=== PATIENT | female | born 1990 | race Caucasian/White ===

== ENCOUNTER 2017-05-15 20:57 | Outpatient (CLI) | payer MEDICARE, MEDICAID ==
[~2017-05-15] VITALS: Ht 154.9 cm; Wt 74.8 kg
[~2017-05-15 20:57] MED LIST: CLINDAMYCIN HC150 MG PO; FLINTSTONES W/I1 CTB OR; GABAPENTIN100 MG PO; IBUPROFEN PO; MACROBID100 M3 PO; MIRAPEX 0.120.125 MG PO; MOTRIN600 M1 PO; MULTI-VITAMIN1 EAC2 PO; NAPROSYN 375MG375 MG PO; NAPROSYN500 M1 PO; NOMEDS; PERCOCET 5/3251 EACH PO; PREDNISONE 20MG20 MG PO; ROPINIROLE HYDRO2 MG PO; SEPTRA DS 800 M1 TAB PO; SERTRALINE 50MG50 MG PO; SERTRALINE25 MG PO; TRAZODONE50 MG PO; ZITHROMAX Z PA250 MG PO; ZOLOFT100 MG PO; ZOLPIDEM 10MG T10 MG PO
[2017-05-15 21:23] VITALS: BP 136/89
== END 2017-05-15 21:40 | disposition home or self-care (01) ==
LOC: OBOUT 20:57 → OB 20:58 → OBOUT 21:40
DX: O36.8130 Decreased fetal movements, third trimester, not applicable or unspecified (principal); Z3A.31 31 weeks gestation of pregnancy

== ENCOUNTER 2017-06-08 19:54 | Outpatient (CLI) | payer MEDICARE, MEDICAID ==
[~2017-06-08] VITALS: Ht 152.4 cm; Wt 79.0 kg
[2017-06-08 20:41] VITALS: BP 141/96
[2017-06-08 20:50] LABS: URINE BILIRUBIN - DIPSTICK NEGATIVE (NEG); URINE BLOOD TRACE-LYSED (NEG)
[2017-06-09] MEDS ORDERED: TUMS 400MG TAB400 MG PO (12:12)
== END 2017-06-08 21:30 | disposition home or self-care (01) ==
LOC: OBOUT 19:54 → OB 19:55 → OBOUT 21:30
PROVIDERS: Nurse Practitioner Obstetrics & Gynecology
DX: O26.93 Pregnancy related conditions, unspecified, third trimester (principal); Z3A.35 35 weeks gestation of pregnancy; R42 Dizziness and giddiness; R82.90 Unspecified abnormal findings in urine

== ENCOUNTER 2017-06-09 11:44 | Outpatient (CLI) | payer MEDICARE, MEDICAID ==
[~2017-06-09] VITALS: Ht 154.9 cm; Wt 77.3 kg
[2017-06-09] VITALS (11 sets, daily range): BP systolic 114–140; BP diastolic 71–90
[2017-06-09] MEDS ORDERED: TUMS 400MG TAB400 MG PO (12:12)
[2017-06-09 12:41] LABS: URINE BILIRUBIN - DIPSTICK NEGATIVE (NEG); URINE BLOOD NEGATIVE (NEG)
[2017-06-09 13:39] LABS: LYMPH # 2.2 K/mm3 (0.7-4.5); LYMPH % 17.3 % (10-50.0)
[2017-06-09 13:45] LABS: HEMOGLOBIN 11.1 g/dL (12.2-16.2)
== END 2017-06-09 15:08 | disposition home or self-care (01) ==
LOC: OB 11:44 → OBOUT 11:44
PROVIDERS: Nurse Practitioner Obstetrics & Gynecology
DX: O26.93 Pregnancy related conditions, unspecified, third trimester (principal); Z3A.35 35 weeks gestation of pregnancy; R11.2 Nausea with vomiting, unspecified; R51 Headache; O16.3 Unspecified maternal hypertension, third trimester; R42 Dizziness and giddiness
CPT/HCPCS: J2405

== ENCOUNTER → 2017-06-11 | Outpatient (CLI) | payer MEDICARE, MEDICAID ==
[~2017-06-11] MED LIST changes: +TUMS 400MG TAB400 MG PO
== END ==
LOC: LAB 16:47
DX: Z34.80 Encounter for supervision of other normal pregnancy, unspecified trimester (principal)

== ENCOUNTER 2017-07-07 02:51 | Inpatient (IN) | payer MEDICARE, MEDICAID ==
[~2017-07-07] VITALS: Ht 154.9 cm; Wt 80.3 kg
--- OUTSIDE RECORDS SUMMARY | 2017-07-07 02:55 | External Medical Summary Rpt | CCD ---
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 Role Phone Isiah Adams MD, Unavailable Unavailable Isiah Adams MD Purpose Continuity of Care Document - 08-11-2012 through 2016 Problems Code Diagnosis DOS Provider Status 642.31 642.31 07-03-2013 [facility] LIVERED 653.41 653.41 07-03-2013 [facility] ELIV V27.0 V27.0 07-03-2013 [facility] LIVEBORN E03.9 HYPOTHYROID ISM, UNSPECIFIED G56.00 CARPAL TUNNEL SYNDROME, UNSPECIFIED UPPER LIMB J18.9 PNEUMONIA, UNSPECIFIED ORGANISM O20.9 HEMORRHAGE IN EARLY , UNSPECIFIED R00.0 TACHYCARDIA , UNSPECIFIED R07.9 CHEST PAIN, UNSPECIFIED R10.9 UNSPECIFIED ABDOMINAL PAIN R82.71 BACTERIURIA S40.029A CONTUSION OF UNSPECIFIED UPPER ARM, INITIAL ENCOUNTER S46.919A STRAIN UNSP MUSC/FASC/T END AT SHLDR/UP ARM, UNSP ARM, INIT S93.409A SPRAIN OF UNSP LIGAMENT OF UNSPECIFIED ANKLE, INIT ENCNTR Allergies, Adverse Reactions, Alerts Type Propensity to adverse reactions to drug Adverse Reaction to Substance Substance Reaction Severity Amoxicillin Unknown Unknown Clavulanic Acid NA-NAUSEA Unknown Medications Na ND Rx Da Fi Fi Am Da Di Ph RX Ph St me C No te ll ll ou ys ag ar # ys at rm s nt no ma ic us Or Da si cy ia de te s n re d AC 00 11 1 No ET 12 -0 AM 10 9- Lo IN 65 20 ng OP 71 13 er HE 1 N Ac 32 ti 5 ve MG /1 0. 15 ML SE 67 11 1 No NO 61 -0 KO 80 9- Lo T 30 20 ng 8. 01 13 er 6 1 MG Ac ti TA ve BL ET DO 00 11 1 No CU 12 -0 SA 10 9- Lo TE 54 20 ng 41 13 er SO 0 DI Ac UM ti ve 50 MG /5 ML LI Q IB 68 11 1 No UP 09 -0 RO 40 9- Lo FE 50 20 ng N 36 13 er 20 2 0 Ac MG ti /1 ve 0 ML CRANDALL SP KE 00 11 1 No TO 09 -0 RO 30 8- Lo LA 31 20 ng C 40 13 er 10 1 Ac MG ti ve TA BL ET CE 60 11 0 No FA 50 -0 ZO 50 7- Lo LI 74 20 ng N 90 13 er 1 5 GM Ac ti ve AL SO 00 11 0 No DI 40 -0 UM 97 7- Lo 98 20 ng CH 43 13 er LO 7 RI Ac DE ti ve 0. 9% SO KENDALL TI ON LA [address] 40 -0 AT 97 7- Lo ED 95 20 ng 30 13 er RI 9 NG Ac ER ti S ve IN JE CT IO N MA 00 11 0 No GN 40 -0 ES 96 7- Lo IU 72 20 ng M 90 13 er CRANDALL 3 LF Ac ti 20 ve G/ 50 0 ML BA G PI 11 11 0 No TO 11 -0 CI 11 7- Lo N 11 20 ng 30 13 13 er 3 UN Ac IT ti S/ ve LR 50 0M L IV AM 00 11 0 No PI 78 -0 CI 13 7- Lo LL 41 20 ng IN 39 13 er 2 2 Ac GM ti ve A- V AL BU 55 11 0 No TO 39 -0 RP 00 7- Lo BURNS 18 20 ng NO 30 13 er L 1 1 Ac MG ti /M ve L AL MA 00 11 2 No PA 90 -0 P 41 7- Lo 32 98 20 ng 5 26 13 er MG 1 Ac TA ti BL ve ET IN 49 11 3 No FL 28 -0 UE 10 7- Lo NZ 39 20 ng A 21 13 er 5 RU Ac S ti VA ve CC IN E 0. 5M L Mo 00 11 3 No rp 40 -0 hi 91 7- Lo ne 25 20 ng 83 13 er 4M 0 G/ Ac Ml ti ve Sy ri ng e OX 00 11 3 No YC 40 -0 OD 60 7- Lo ON 55 20 ng E 26 13 er HC 2 L Ac 5 ti MG ve TA BL ET SI 63 11 3 No ME 73 -0 TH 90 7- Lo IC 22 20 ng ON 51 13 er E 0 80 Ac ti MG ve TA B CH EW MA 59 11 0 No SO 76 -0 ME 25 7- Lo OS 00 20 ng TO 80 13 er L 1 20 Ac 0 ti MC ve G TA BL ET KE 00 11 1 No TO 40 -0 RO 93 7- Lo LA 79 20 ng C 50 13 er 30 1 Ac MG ti /M ve L AL Results Labs Lab Lab Date Result Refere Interp Status Commen Order Detail nces retati t Range on CBC w auto diff (06-09-2017 13:20) Blood = 11.1 12.2-16 complet hemoglo 017 g/dL .2 ed bin 13:20 measure ment (mass/v olum Blood = 33.2 37.0-47 complet hematoc 017 % .0 ed rit 13:20 (volume fractio n) Granulo = 72.5 37.0-80 complet cyte 017 % .0 ed percent 13:20 age Blood = 9.2 1.8-7.8 complet granulo 017 K/mm3 ed cytes 13:20 automat ed count (numb Automat = 5.6 % 0.1-12. complet ed 017 0 ed blood 13:20 eosinop hils/10 0 leukocy t Automat = 0.7 0.0-0.4 complet ed 017 K/mm3 ed blood 13:20 eosinop hil count Baso % = 0.3 % 0.1-2.0 complet 017 ed 13:20 Automat = 0.0 0-0.2 complet ed 017 K/MM3 ed blood 13:20 basophi l count (count/ vo Blood = 12.7 4.8-10. complet leukocy 017 K/MM3 8 ed albretina 13:20 count (number /volume ) Automat = 13.2 11.5-17 complet ed 017 % .5 ed erythro 13:20 cyte distrib ution width Red = 4.02 4.2-5.4 complet blood 017 M/mm3 ed cell 13:20 count Blood = 285 142-424 complet platele 017 K/mm3 ed t count 13:20 Automat = 8.3 7.4-10. complet ed 017 fl 4 ed blood 13:20 platele t mean volume jaqueline [place] % = 4.4 % 1.7-9.3 complet 017 ed 13:20 Absolut = 0.6 0.1-1.0 complet e 017 K/mm3 ed monocyt 13:20 e count Automat = 82.5 82.2-97 complet ed 017 fl .8 ed erythro 13:20 cyte mean corpusc ular v Automat = 33.3 31.8-35 complet ed 017 g/dl .4 ed erythro 13:20 cyte mean corpusc ular h Mean = 27.5 27-31.2 complet corpusc 017 pg ed ular 13:20 hemoglo bin ([facility]) determ Lymphoc = 17.3 10-50.0 complet yte 017 % ed count, 13:20 blood, automat ed Absolut = 2.2 0.7-4.5 complet e 017 K/mm3 ed lymphoc 13:20 yte count Blood type and screen (06-09-2017 13:20) Blood TNP TNP complet ABO 017 L ed group 13:20 typing Comment: TNP PER Rh TNP TNP complet blood 017 L ed group 13:20 typing Materna TNP TNP NEGATIV complet l 017 L E ed antibod 13:20 y screen Activated partial thromboplastin time (a (06-09-2017 13:20) Activat = 26.0 23.6-34 complet ed 017 SECONDS .0 ed partial 13:20 thrombo plastin time (a Whole blood INR measurement (06-09-2017 13:20) Prothro = 10.1 9.4-11. complet mbin 017 SECONDS 8 ed time 13:20 (PT) in platele t poor p Whole = 0.94 0.9-1.1 complet blood 017 ed INR 13:20 measure ment Comment: INDICATION INR RANGE Comment: Comment: THERAPY FOR DVT, PE, ATRIAL FIB; 2.0 - 3.0 Comment: PROPHYLAXIS FOR VTE Comment: Comment: THERAPY FOR MECHANICAL HEART 2.5 - 3.5 Comment: VALVE; PREVENTION OF SYSTEMIC Comment: EMBOLISM SECONDARY TO AMI Fibrinogen measurement in platelet poor (06-09-2017 13:20) Fibrino = 467.0 204.2-4 complet gen 017 mg/dL 99.8 ed measure 13:20 ment in platele t poor D-dimer (06-09-2017 13:20) D-dimer = 575 0-400 complet 017 ng/mL ed 13:20 Comment: NOTIFICATION RESULT Comment: Diane Comment: The D-Dimer values are presented in units of mass(ng/mL) of Comment: D-Dimer units(DDU). Comment: Comment: This test has been FDA approved as an aid in the assessment Comment: and evaluation of suspected DIC, and thromboembolic events Comment: including PE and DVT. However, it does not have approval Comment: for cut-off values for the exclusion of these conditions. Serum or plasma uric acid measurement (m (06-09-2017 13:20) Serum = 3.9 2.6-7.2 complet or 017 mg/dL ed plasma 13:20 uric acid measure ment (m ALT (SGPT) ser/plas (06-09-2017 13:20) ALT = 21 12-78 complet (SGPT) 017 U/L ed ser/lynn 13:20 s Serum or plasma aspartate aminotransfera (06-09-2017 13:20) Serum = 19 15-37 complet or 017 U/L ed plasma 13:20 asparta te aminotr ansfera Basic metabolic panel (06-09-2017 13:20) Serum = 138 136-145 complet sodium 017 mmoL/L ed measure 13:20 ment Serum = 3.6 3.5-5.1 complet potassi 017 mmoL/L ed um 13:20 measure ment Serum = 104 74-106 complet or 017 mg/dL ed plasma 13:20 glucose measure ment (mas Estimat = 122 59- complet ed 017 ML/MIN ed glomeru 13:20 lar filtrat ion rate (GF Comment: REFERENCE RANGE: >60 ML/MIN/1.73 SQUARE METERS Comment: If this patient is -Panamanian, then multiply the Comment: result by 1.210. Estimat = 175 50-200 complet ion of 017 ML/MIN ed creatin 13:20 ine renal clearan ce Serum = 0.6 0.55-1. complet or 017 mg/dL 02 ed plasma 13:20 creatin ine measure ment ( Carbon = 23 21.0-32 complet dioxide 017 mmoL/L .0 ed 13:20 measure ment Serum = 106 98-107 complet or 017 mmoL/L ed plasma 13:20 chlorid e measure ment (mo Serum = 8.1 8.5-10. complet or 017 mg/dL 1 ed plasma 13:20 calcium measure ment (mas Serum = 6 7-18 complet or 017 mg/dL ed plasma 13:20 urea nitroge n measure men Blood type & Indirect antibody screen panel in Blood (06-09-2017 13:20) Blood TNP NEGATIV complet group 017 E ed antibod 13:20 y screen [Presen ce] in Serum or Plasma Rh TNP complet [Type] 017 ed in 13:20 Blood ABO 06-09- TNP complet group 017 ed [Type] 13:20 in Blood Urinalysis with microscopy (06-09-2017 11:59) Comment: Collected by nurse? Y Comment: Hold specimen in OE? N Bacteri TRACE O complet a 017 TRACE L ed detecti 11:59 on in urine sedimen t by Urine NEGATIV NEG complet total 017 E ed bilirub 11:59 NEGATIV in E L detecti on by test Urine NEGATIV NEG complet blood 017 E ed detecti 11:59 NEGATIV on E L Urine YELLOW YELLOW complet color 017 YELLOW ed 11:59 L Glucose 1 + NEG complet ur 017 ed test 11:59 strip Urine NEGATIV NEG complet ketones 017 E ed 11:59 NEGATIV detecti E L on by mg/dL automat ed albertina Mucus 1+ 1+ L NEG complet detecti 017 ed on in 11:59 urine sedimen t by lig Urine NEGATIV NEG complet nitrite 017 E ed 11:59 NEGATIV detecti E L on by test strip Urine = 6.5 5.0-8.5 complet pH 017 ed 11:59 Urine = NEG complet protein 017 NEGATIV ed 11:59 E mg/dL measure ment by automat ed t Erythro NONE 0 complet cytes 017 NONE L ed detecti 11:59 rbc/hpf on in urine sedimen t Urine < = 1.005-1 complet specifi 017 1.005 .030 ed c 11:59 gravity measure ment [place] 3-5 3-5 0-5 complet s 017 L ed epithel 11:59 #/hpf ial cells detecti on in u Urine 0.2 0.2 NEG complet urobili 017 L ed nogen 11:59 E.U./dL detecti on by test str Urine 3 - 5 O complet leukocy 017 wbc/hpf ed albertina 11:59 count (number /volume ) Urine CLEAR CLEAR complet appeara 017 CLEAR L ed nce 11:59 determi nation Urinalysis with microscopy (06-08-2017 20:00) Comment: Collected by nurse? Y Comment: Hold specimen in OE? N Urine 10 - 20 O complet leukocy 017 ed albertina 20:00 wbc/hpf count (number /volume ) Urine 0.2 0.2 NEG complet urobili 017 L ed nogen 20:00 E.U./dL detecti on by test str [place] 5-10 0-5 complet s 017 5-10 L ed epithel 20:00 #/hpf ial cells detecti on in u Urine = 1.010 1.005-1 complet specifi 017 .030 ed c 20:00 gravity measure ment Urine = NEG complet protein 017 NEGATIV ed 20:00 E mg/dL measure ment by automat ed t Urine 16-2 = 7.0 5.0-8.5 complet pH 017 ed 20:00 Urine 10-16-2 NEGATIV NEG complet nitrite 017 E ed 20:00 NEGATIV detecti E L on by test strip Mucus -16-2 2+ 2+ L NEG complet detecti 017 ed on in 20:00 urine sedimen t by lig Urine 16-2 NEGATIV NEG complet ketones 017 E ed 20:00 NEGATIV detecti E L on by mg/dL automat ed albertina Glucose 16-2 = NEG complet ur 017 NEGATIV ed test 20:00 E strip Urine 06-08-2 YELLOW YELLOW complet color 017 YELLOW ed 20:00 L Urine -16-2 TRACE-L NEG complet blood 017 YSED ed detecti 20:00 TRACE-L on YSED L Urine 06-08-2 NEGATIV NEG complet total 017 E ed bilirub 20:00 NEGATIV in E L detecti on by test Bacteri 06-08-2 1+ 1+ L O complet a 017 ed detecti 20:00 on in urine sedimen t by Urine 06-08-2 CLEAR CLEAR complet appeara 017 CLEAR L ed nce 20:00 determi nation Urinalysis dipstick W Reflex Microscopic panel in Urine (06-08-2017 20:00) Bacteri -16-2 1+ O complet a 017 ed [Presen 20:00 ce] in Urine sedimen t by Light microsc opy Epithel 06-08- 5-10 0#/hp complet ial 017 f - ed cells.s 20:00 5#/hp quamous f [Presen ce] in Urine sedimen t by Microsc opy high power field Leukocy -16-2 10-20 O complet albertina 017 wbc/hpf ed [#/volu 20:00 me] in Urine Urinalysis dipstick W Reflex Microscopic panel in Urine (06-08-2017 20:00) Appeara 10-16-2 CLEAR CLEAR complet nce of 017 ed Urine 20:00 Bilirub 16-2 NEGATIV NEG complet in 017 E ed [Presen 20:00 ce] in Urine by Test strip Erythro 16-2 TRACE-L NEG complet cytes 017 YSED ed [Presen 20:00 ce] in Urine Color 06-08-2 YELLOW YELLOW complet of 017 ed Urine 20:00 Ketones 06-08-2 NEGATIV NEG complet 017 E ed [Presen 20:00 ce] in Urine by Automat ed test strip Mucus 06-08-2 2+ NEG Abnorma complet [Presen 017 l ed ce] in 20:00 Urine sedimen t by Light microsc opy Nitrite NEGATIV NEG complet 017 E ed [Presen 20:00 ce] in Urine by Test strip Urobili 2 0.2 NEG complet nogen 017 ed [Presen 20:00 ce] in Urine by Test strip Urinalysis dipstick W Reflex Microscopic panel in Urine (04-16-2017 16:00) Bacteri 3+ O complet a 017 ed [Presen 16:00 ce] in Urine sedimen t by Light microsc opy Erythro 2 OCC 0 complet cytes 017 ed [Presen 16:00 ce] in Urine sedimen t by Light microsc opy Epithel 20-50 0#/hp complet ial 017 f - ed cells.s 16:00 5#/hp quamous f [Presen ce] in Urine sedimen t by Microsc opy high power field Leukocy 10-20 O complet albertina 017 wbc/hpf ed [#/volu 16:00 me] in Urine Urinalysis dipstick W Reflex Microscopic panel in Urine (04-16-2017 16:00) Appeara CLOUDY CLEAR complet nce of 017 ed Urine 16:00 Bilirub 2 NEGATIV NEG complet in 017 E ed [Presen 16:00 ce] in Urine by Test strip Erythro NEGATIV NEG complet cytes 017 E ed [Presen 16:00 ce] in Urine Color YELLOW YELLOW complet of 017 ed Urine 16:00 Ketones 04-16-2 NEGATIV NEG complet 017 E ed [Presen 16:00 ce] in Urine by Automat ed test strip Mucus 3+ NEG Abnorma complet [Presen 017 l ed ce] in 16:00 Urine sedimen t by Light microsc opy Nitrite NEGATIV NEG complet 017 E ed [Presen 16:00 ce] in Urine by Test strip Urobili 04-16-2 0.2 NEG complet nogen 017 ed [Presen 16:00 ce] in Urine by Test strip pH BldCo (06-30-2013 12:05) pH 06-30-2 7.34 7.35-7. complet BldCo 013 UNK 45 ed 12:05 URINALYSIS/COMPLETE (06-30-2013 09:51) URINE 06-30-2 YELLOW YELLOW complet COLOR 013 ed 09:51 URINE 06-30-2 CLEAR CLEAR complet APPEARA 013 ed NCE 09:51 URINE 06-30-2 NEGATIV NEG complet GLUCOSE 013 E ed - 09:51 DIPSTIC K URINE 06-30-2 NEGATIV NEG complet BILIRUB 013 E ed IN - 09:51 DIPSTIC K URINE 06-30-2 NEGATIV NEG complet KETONE 013 E mg/dL ed 09:51 URINE 06-30-2 Greater 1.005-1 complet SPECIFI 013 than .030 ed C 09:51 or GRAVITY equal to 1.030 URINE 06-30-2 1+ NEG complet BLOOD 013 ed 09:51 URINE 06-30-2 6.0 UNK 5.0-8.5 complet PH 013 ed 09:51 URINE 06-30-2 NEGATIV NEG complet PROTEIN 013 E mg/dL ed - 09:51 DIPSTIC K URINE 06-30-2 0.2 NEG complet UROBILI 013 E.U./dL ed NOGEN - 09:51 DIPSTIC K URINE 06-30-2 NEGATIV NEG complet NITRATE 013 E ed - 09:51 DIPSTIC K URINE 06-30-2 NEGATIV NEG complet LEUK 013 E ed ESTERAS 09:51 E URINE 06-30-2 3-5 0 complet RBC 013 rbc/hpf ed 09:51 URINE 06-30-2 5-10 0-5 complet SQUAMOU 013 #/hpf ed S CELLS 09:51 URINE 06-30-2 1+ O complet BACTERI 013 ed A 09:51 BASIC METABOLIC PANEL (06-30-2013 02:30) Glucose --2 80 74-106 complet 013 mg/dL ed Bld-mCn 02:30 c BUN 11-07-2 5 mg/dL 7-18 complet Bld-mCn 013 ed c 02:30 Creat 0.8 0.6-1.0 complet SerPl-m 013 mg/dL ed Cnc 02:30 ESTIMAT 132 50-200 complet ED 013 ML/MIN ed CREATIN 02:30 INE CLEARAN CE GFR 91 59- complet (ESTIMA 013 ML/MIN ed CHAITANYA) 02:30 Sodium 141 136-145 complet SerPl-s 013 mmoL/L ed Cnc 02:30 Potassi 3.3 3.5-5.1 complet um 013 mmoL/L ed SerPl-s 02:30 Cnc Chlorid 107 98-107 complet e 013 mmoL/L ed SerPl-s 02:30 Cnc CO2 23 21.0-32 complet SerPl-s 013 mmoL/L .0 ed Cnc 02:30 Calcium 8.7 8.5-10. complet 013 mg/dL 1 ed SerPl-m 02:30 Cnc URIC ACID (06-30-2013 02:30) URIC 5.8 2.6-7.2 complet ACID 013 mg/dL ed 02:30 Magnesium SerPl-mCnc (06-30-2013 02:30) Magnesi 1.7 1.4-2.2 complet um 013 mg/dL ed SerPl-m 02:30 Cnc AST SerPl-cCnc (06-30-2013 02:30) AST 20 U/L 15-37 complet SerPl-c 013 ed Cnc 02:30 ALT SerPl-cCnc (06-30-2013 02:30) ALT 34 U/L 30-65 complet SerPl-c 013 ed Cnc 02:30 PROTIME/INR (06-30-2013 02:30) PROTHRO 9.4 9.9-11. complet MBIN 013 SECONDS 6 ed TIME 02:30 INR Bld 0.88 0.9-1.1 complet 013 UNK ed 02:30 ACT PARTIAL THROMBO TIME (06-30-2013 02:30) ACT 24.0 25.3-32 complet PARTIAL 013 SECONDS .0 ed 02:30 THROMBO TIME Fibrinogen PPP-nc (06-30-2013 02:30) Fibrino 484.5 204.1-4 complet gen 013 mg/dL 58.1 ed PPP-mCn 02:30 c D Dimer PPP (06-30-2013 02:30) D Dimer 1520 0-400 High complet PPP 013 ng/mL alert ed 02:30 CBC with AUTO DIFF (06-30-2013 02:30) WBC # 06-30- 12.1 4.8-10. complet Bld 013 K/MM3 8 ed Auto 02:30 RBC # 4.00 4.2-5.4 complet Bld 013 M/mm3 ed Auto 02:30 Hgb 11.1 12.2-16 complet Bld-mCn 013 g/dL .2 ed c 02:30 Hct Fr 32.4 % 37.0-47 complet Bld 013 .0 ed 02:30 MCV RBC 81.2 fl 82.2-97 complet 013 .8 ed 02:30 MCH RBC 27.8 pg 27-31.2 complet Qn 013 ed Auto 02:30 MEAN 34.3 31.8-35 complet CORPUSC 013 g/dl .4 ed ULAR 02:30 HGB CONC RDW RBC 14.6 % 11.5-17 complet Auto 013 .5 ed 02:30 Platele 294 142-424 complet t Bld 013 K/mm3 ed Ql 02:30 Manual MEAN 8.4 fl 7.4-10. complet PLATELE 013 4 ed T 02:30 VOLUME Granulo 65.5 % 37.0-80 complet cytes 013 .0 ed Fr Bld 02:30 Auto LYMPH % 24.3 % 10-50.0 complet 013 ed 02:30 Monocyt 5.4 % 1.7-9.3 complet es Fr 013 ed Bld 02:30 Auto Eosinop 4.6 % 0.1-12. complet hil Fr 013 0 ed Bld 02:30 Auto Basophi 11-07-2 0.3 % 0.1-2.0 complet ls Fr 013 ed Bld 02:30 Auto Granulo 7.9 1.8-7.8 complet cytes # 013 K/mm3 ed Bld 02:30 Auto Lymphoc 2.9 0.7-4.5 complet ytes Fr 013 K/mm3 ed Bld 02:30 Auto Monocyt 06-30-2 0.7 0.1-1.0 complet es # 013 K/mm3 ed Bld 02:30 Auto Eosinop 0.6 0.0-0.4 complet hil # 013 K/mm3 ed Bld 02:30 Auto Basophi 2 0.0 0-0.2 complet ls # 013 K/MM3 ed Bld 02:30 Auto URINALYSIS/COMPLETE (06-30-2013 00:48) URINE YELLOW YELLOW complet COLOR 013 ed 00:48 URINE CLEAR CLEAR complet APPEARA 013 ed NCE 00:48 URINE NEGATIV NEG complet GLUCOSE 013 E ed - 00:48 DIPSTIC K URINE NEGATIV NEG complet BILIRUB 013 E ed IN - 00:48 DIPSTIC K URINE NEGATIV NEG complet KETONE 013 E mg/dL ed 00:48 URINE 1.010 1.005-1 complet SPECIFI 013 UNK .030 ed C 00:48 GRAVITY URINE NEGATIV NEG complet BLOOD 013 E ed 00:48 URINE 6.0 UNK 5.0-8.5 complet PH 013 ed 00:48 URINE NEGATIV NEG complet PROTEIN 013 E mg/dL ed - 00:48 DIPSTIC K URINE 0.2 NEG complet UROBILI 013 E.U./dL ed NOGEN - 00:48 DIPSTIC K URINE NEGATIV NEG complet NITRATE 013 E ed - 00:48 DIPSTIC K URINE 1+ NEG complet LEUK 013 ed ESTERAS 00:48 E URINE OCC 0 complet RBC 013 rbc/hpf ed 00:48 URINE 10-20 O complet WBC 013 wbc/hpf ed 00:48 URINE 10-20 0-5 complet SQUAMOU 013 #/hpf ed S CELLS 00:48 URINE OCC NONE complet RENAL 013 #/HPF ed CELLS 00:48 URINE 2+ O complet BACTERI 013 ed A 00:48 Procedures Procedure DOS Code Location Performer Comment LOW 74.1 [facility] Bryan LOPEZ Encounters Encounter Start End Date Code Location Performer Type Date Inpatient IMP Aris Adams MD ([place]) 3 00:39 3 14:30 [facility]
--- OUTSIDE RECORDS SUMMARY | 2017-07-07 02:55 | External Medical Summary Rpt | CCD ---
Author Author , JESUSITA Organization JESUSITA Address Unknown Phone [email or web address] Care Team Providers Care Writer Producer Name Role Phone Isiah Adams MD, Unavailable Unavailable Isiah Adams MD Purpose Continuity of Care Document - 08-11-2012 through 2016 Problems Code Diagnosis DOS Provider Status 642.31 642.31 07-03-2013 [facility] LIVERED 653.41 653.41 07-03-2013 [facility] ELIV V27.0 V27.0 07-03-2013 [facility] LIVEBORN E03.9 HYPOTHYROID ISM, UNSPECIFIED G56.00 CARPAL [...] ti MG ve TA B CH EW KS 59 11 0 No SO 76 -0 MS 25 7- Lo OS 00 20 ng [...] 4.8-10. complet leukocy 017 K/MM3 8 ed albertina 13:20 count (number /volume ) Automat = 13.2 11.5-17 complet ed 017 % .5 ed erythro 13:20 cyte distrib ution width Red = 4.02 4.2-5.4 complet blood 017 M/mm3 ed cell 13:20 count Blood = 285 142-424 complet platele 017 K/mm3 ed t count 13:20 Automat = 8.3 7.4-10. complet ed 017 fl 4 ed blood 13:20 platele t mean volume jaqueline [place] % = 4.4 % 1.7-9.3 complet 017 [...] SQUARE METERS Comment: If this patient is -Moroccan, then multiply the Comment: result by 1.210. [...] DOS Code Location Performer Comment LOW 74.1 [facility] Bryan LOPEZ Encounters Encounter Start End Date Code Location Performer Type Date Inpatient IMP Aris Adams MD ([place]) 3 00:39 3 14:30 [facility]
--- OUTSIDE RECORDS SUMMARY | 2017-07-07 02:56 | External Medical Summary Rpt | CCD ---
Author Author , JESUSITA MC Address Unknown Phone [email or web address] Immunization Name Date Rout CVX Reac Dose Comm Prov Is Faci e tion ent ider Refu lity Give sed n Td 08-0 9 999 Hist H149 No H149 (yimi 4-20 oric lt), 04 al Info adso rmat rbed ion - Sour ce Unsp ecif ied
--- OUTSIDE RECORDS SUMMARY | 2017-07-07 02:56 | External Medical Summary Rpt | CCD ---
Author Author Con[employer]ent Organization Conduent Address Unknown Phone Unavailable Purpose Continuity of Care Document - through 2016
--- OUTSIDE RECORDS SUMMARY | 2017-07-07 02:56 | External Medical Summary Rpt | CCD ---
Author Author , JESUSITA MC Address Unknown Phone [email or web address] Immunization Name Date Rout CVX Reac Dose Comm Prov Is Faci e tion ent ider Refu lity Give sed n Td 08-0 9 999 Hist H149 No H149 (ymii 4-20 oric lt), 04 al Info adso rmat rbed ion - Sour ce Unsp ecif ied
--- OUTSIDE RECORDS SUMMARY | 2017-07-07 02:57 | External Medical Summary Rpt ---
Author Author JESUSITA Farias, [employer] Organization [employer] Address Unknown Phone Unavailable Results Fibrin D-dimer FEU [Mass/volume] in Platelet poor plasma Observa Value Referen Units Interpr Notes Date tion ce etation Range Fibrin 0 - 400 ng/mL High Jun 09 D-dimer alert NOTIFICAT 2017 1:20 FEU ION PM [Mass/vol RESULT ume] in Marguerite Platelet neThe poor D-Dimer plasma values are presented in units of mass(ng/m L) ofD-Dimer units(DDU ).This test has been FDA approved as an aid in the assessmen tand evaluatio n of suspected DIC, and thromboem bolic eventsinc luding PE and DVT. However, it does not have approvalf or cut-off values for the exclusion of these condition s. Fibrinogen [Mass/volume] in Platelet poor plasma by Coagulation assay Observa Value Referen Units Interpr Notes Date tion ce etation Range Fibrinoge 204.2 - mg/dL Normal No Jun 09 n 499.8 informati 2017 1:20 [Mass/vol on in PM ume] in source Platelet data poor plasma by Coagulati on assay INR in Blood by Coagulation assay Observa Value Referen Units Interpr Notes Date ti ce etation Range INR in 0.9 - 1.1 No Normal INDICATIO Jun 09 Blood by informati N 2017 1:20 Coagulati on in PM on assay source INR data RANGETHER APY FOR DVT, PE, ATRIAL FIB; 2.0 - 3.0PROPHY LAXIS FOR VTETHERAP Y FOR MECHANICA L HEART 2.5 - 3.5VALVE; PREVENTIO N OF SYSTEMICE MBOLISM SECONDARY TO AMI Prothromb 9.4 - SECONDS Normal No Jun 09 in time 11.8 informati 2017 1:20 (PT) in on in PM Platelet source poor data plasma by Coagulati on assay Activated partial thrombplastin time (aPTT) in Platelet poor plasma by Coagulation assay Observa Value Referen Units Interpr Notes Date tion ce etation Range Activated 23.6 - SECONDS Normal No Jun 09 partial 34.0 informati 2016 1:20 thrombpla on in PM stin time source (aPTT) data in Platelet poor plasma by Coagulati on assay Basic metabolic panel in Blood Observa Value Referen Units Interpr Notes Date tion ce etation Range Urea 7 - 18 mg/dL Low No Jun 09 nitrogen informati 2016 1:20 [Mass/vol on in PM ume] in source Serum or data Plasma Calcium 8.5 - mg/dL Low No Jun 09 [Mass/vol 10.1 informati 2016 1:20 ume] in on in PM Serum or source Plasma data Chloride 98 - 107 mmoL/L Normal No Jun 09 [Moles/vo informati 2016 1:20 lume] in on in PM Serum or source Plasma data Carbon 21.0 - mmoL/L Normal No Jun 09 dioxide, 32.0 informati 2016 1:20 total on in PM [Moles/vo source lume] in data Serum or Plasma Creatinin 0.55 - mg/dL Normal No Jun 09 e 1.02 informati 2016 1:20 [Mass/vol on in PM ume] in source Serum or data Plasma Creatinin 50 - 200 ML/MIN Normal No Jun 09 e renal informati 2016 1:20 clearance on in PM source predicted data by Cockcroft -Gault formula Estimated 59- ML/MIN No REFERENCE Jun 09 informati RANGE: 2017 1:20 glomerula on in >60 PM r source ML/MIN/1. filtratio data 73 SQUARE n rate METERSIf (GF this patient is -A merican, then multiply theresult by 1.210. Glucose 74 - 106 mg/dL Normal No Jun 09 [Mass/vol informati 2016 1:20 ume] in on in PM Serum or source Plasma data Potassium 3.5 - 5.1 mmoL/L Normal No Jun 09 informati 2016 1:20 [Moles/vo on in PM lume] in source Serum or data Plasma Sodium 136 - 145 mmoL/L Normal No Jun 09 [Moles/vo informati 2016 1:20 lume] in on in PM Serum or source Plasma data Aspartate aminotransferase [Enzymatic activity/volume] in Serum or Plasma Observa Value Referen Units Interpr Notes Date tion ce etation Range Aspartate 15 - 37 U/L Normal No Jun 09 inform2016 1:20 aminotran on in PM sferase source [Enzymati data c activity/ volume] in Serum or Plasma Alanine aminotransferase [Enzymatic activity/volume] in Serum or Plasma Observa Value Referen Units Interpr Notes Date tion ce etation Range Alanine 12 - 78 U/L Normal No Jun 09 aminotran inform2016 1:20 sferase on in PM [Enzymati source c data activity/ volume] in Serum or Plasma Urate [Mass/volume] in Serum or Plasma Observa Value Referen Units Interpr Notes Date tion ce etation Range Urate 2.6 - 7.2 mg/dL Normal No Jun 09 [Mass/vol informati 2016 1:20 ume] in on in PM Serum or source Plasma data CBC W Auto Differential panel in Blood Observa Value Referen Units Interpr Notes Date ti ce etation Range Basophils 0 - 0.2 K/MM3 Normal No Jun 092016 1:20 [#/volume on in PM ] in source Blood by data Automated count Basophils 0.1 - 2.0 % Normal No Jun 09 / informati 2016 1:20 leukocyte on in PM s in source Blood by data Automated count Eosinophi 0.0 - 0.4 K/mm3 High No Jun 09 ls informati 2016 1:20 [#/volume on in PM ] in source Blood by data Automated count Eosinophi 0.1 - % Normal No Jun 09 ls/100 12.0 informati 2016 1:20 leukocyte on in PM s in source Blood by data Automated count Granulocy 1.8 - 7.8 K/mm3 High No Jun 09 angely informati 2016 1:20 [#/volume on in PM ] in source Blood by data Automated count Granulocy 37.0 - % Normal No Jun 09 angely/100 80.0 informati 2016 1:20 leukocyte on in PM s in source Blood by data Automated count Hematocri 37.0 - % Low No Jun 09 t [Volume 47.0 informati 2016 1:20 on in PM Fraction] source of Blood data Hemoglobi 12.2 - g/dL Low No Jun 09 n 16.2 informati 2016 1:20 [Mass/vol on in PM ume] in source Blood data Lymphocyt 0.7 - 4.5 K/mm3 Normal No Jun 09 es ati 2016 1:20 [#/volume on in PM ] in source Unspecifi data ed specimen by Automated count Lymphocyt 10 - 50.0 % Normal No Jun 09 es inform2016 1:20 [#/volume on in PM ] in source Unspecifi data ed specimen by Automated count Erythrocy 27 - 31.2 pg Normal No Jun 09 te mean inform2016 1:20 corpuscul on in PM ar source hemoglobi data n [Entitic mass] Erythrocy 31.8 - g/dl Normal No Jun 09 te mean 35.4 informati 2016 1:20 corpuscul on in PM ar source hemoglobi data n concentra tion [Mass/vol ume] by Automated count Erythrocy 82.2 - fl Normal No Jun 09 te mean 97.8 informati 2016 1:20 corpuscul on in PM ar volume source [Entitic data volume] by Automated count Monocytes 0.1 - 1.0 K/mm3 Normal No Jun 09 inform2016 1:20 [#/volume on in PM ] in source Blood by data Automated count Monocytes 1.7 - 9.3 % Normal No Jun 09 /100 informati 2016 1:20 leukocyte on in PM s in source Blood by data Automated count Platelet 7.4 - fl Normal No Jun 09 mean 10.4 informati 2016 1:20 volume on in PM [Entitic source volume] data in Blood by Automated count Platelets 142 - 424 K/mm3 Normal No Jun 09 inform2016 1:20 [#/volume on in PM ] in source Blood data Erythrocy 4.2 - 5.4 M/mm3 Low No Jun 09 angely informati 2016 1:20 [#/volume on in PM ] in source Amniotic data fluid Erythrocy 11.5 - % Normal No Jun 09 te 17.5 informati 2016 1:20 distribut on in PM ion width source [Entitic data volume] by Automated count Leukocyte 4.8 - K/MM3 High No Jun 09 s 10.8 informati 2016 1:20 [#/volume on in PM ] in source Blood data Blood type & Indirect antibody screen panel in Blood Observa Value Referen Units Interpr Notes Date tion ce etation Range Blood TNP NEGATIV No No No Jun 09 group E informa informa informa 2016 antibod tion in tion in tion in 1:20 PM y source source source screen data data data [Presen ce] in Serum or Plasma Rh TNP No No No No Jun 09 [Type] informa informa informa informa 2017 in tion in tion in tion in tion in 1:20 PM Blood source source source source data data data data ABO TNP No No No TNP PER Jun 09 group informa informa informa 2016 [Type] tion in tion in tion in DRGosiaCLAR 1:20 PM in source source source KE Blood data data data Urinalysis dipstick W Reflex Microscopic panel in Urine Observa Value Referen Units Interpr Notes Date tion ce etation Range Collected by nurse? Y Hold specimen in OE? N Appeara CLEAR CLEAR No No No Jun 08 nce of informa informa informa 2016 Urine tion in tion in tion in 8:00 PM source source source data data data Bacteri 1+ O No No No Jun 08 a informa informa informa 2016 [Presen tion in tion in tion in 8:00 PM ce] in source source source Urine data data data sedimen t by Light microsc opy Bilirub NEGATIV NEG No No No Jun 08 in E informa informa informa 2016 [Presen tion in tion in tion in 8:00 PM ce] in source source source Urine data data data by Test strip Erythro TRACE-L NEG No No No Jun 08 cytes YSED informa informa informa 2016 [Presen tion in tion in tion in 8:00 PM ce] in source source source Urine data data data Color YELLOW YELLOW No No No Jun 08 of informa informa informa 2016 Urine tion in tion in tion in 8:00 PM source source source data data data Glucose NEG No No No Jun 08 [Mass/vol informati informati informati 2016 8:00 ume] in on in on in on in PM Urine by source source source Test data data data strip Ketones NEGATIV NEG mg/dL No No Jun 08 E informa informa 2016 [Presen tion in tion in 8:00 PM ce] in source source Urine data data by Automat ed test strip Mucus 2+ NEG No Abnorma No Jun 08 [Presen informa l informa 2016 ce] in tion in tion in 8:00 PM Urine source source sedimen data data t by Light microsc opy Nitrite NEGATIV NEG No No No Jun 08 E informa informa informa 2016 [Presen tion in tion in tion in 8:00 PM ce] in source source source Urine data data data by Test strip pH of 5.0 - 8.5 No Normal No Jun 08 Urine informati informati 2016 8:00 on in on in PM source source data data Protein NEG mg/dL No No Jun 08 [Mass/vol informati informati 2016 8:00 ume] in on in on in PM Urine by source source Automated data data test strip Specific 1.005 - No Normal No Jun 08 gravity 1.030 informati informati 2016 8:00 of Urine on in on in PM source source data data Epithel 5-10 0 - 5 #/hpf No No Jun 08 ial informa informa 2016 cells.s tion in tion in 8:00 PM quamous source source data data [Presen ce] in Urine sedimen t by Microsc opy high power field Urobili 0.2 NEG E.U./dL No No Jun 08 nogen informa informa 2016 [Presen tion in tion in 8:00 PM ce] in source source Urine data data by Test strip Leukocy [10 O wbc/hpf No No Jun 08 angely wbc/hpf informa informa 2016 [#/volu ; 20 tion in tion in 8:00 PM me] in wbc/hpf source source Urine ] data data Urinalysis dipstick W Reflex Microscopic panel in Urine Observa Value Referen Units Interpr Notes Date tion ce etation Range Collected by nurse? Y Hold specimen in OE? N Appeara CLEAR CLEAR No No No Jun 08 nce of informa informa informa 2016 Urine tion in tion in tion in 8:00 PM source source source data data data Bilirub NEGATIV NEG No No No Jun 08 in E informa informa informa 2016 [Presen tion in tion in tion in 8:00 PM ce] in source source source Urine data data data by Test strip Erythro TRACE-L NEG No No No Jun 08 cytes YSED informa informa informa 2016 [Presen tion in tion in tion in 8:00 PM ce] in source source source Urine data data data Color YELLOW YELLOW No No No Jun 08 of informa informa informa 2017 Urine tion in tion in tion in 8:00 PM source source source data data data Glucose NEG No No No Jun 08 [Mass/vol informati informati informati 2016 8:00 ume] in on in on in on in PM Urine by source source source Test data data data strip Ketones NEGATIV NEG mg/dL No No Jun 08 E informa informa 2016 [Presen tion in tion in 8:00 PM ce] in source source Urine data data by Automat ed test strip Mucus 2+ NEG No Abnorma No Jun 08 [Presen informa l informa 2016 ce] in tion in tion in 8:00 PM Urine source source sedimen data data t by Light microsc opy Nitrite NEGATIV NEG No No No Jun 08 E informa informa informa 2016 [Presen tion in tion in tion in 8:00 PM ce] in source source source Urine data data data by Test strip pH of 5.0 - 8.5 No Normal No Jun 08 Urine informati informati 2016 8:00 on in on in PM source source data data Protein NEG mg/dL No No Jun 08 [Mass/vol informati informati 2016 8:00 ume] in on in on in PM Urine by source source Automated data data test strip Specific 1.005 - No Normal No Jun 08 gravity 1.030 informati informati 2016 8:00 of Urine on in on in PM source source data data Urobili 0.2 NEG E.U./dL No No Jun 08 nogen informa informa 2016 [Presen tion in tion in 8:00 PM ce] in source source Urine data data by Test strip Fibronectin. [Mass/volume] in Vaginal fluid Observa Value Referen Units Interpr Notes Date tion ce etation Range Fibronect NEGATIVE No No Apr 16 in. informati informati FIBRONECT 2017 4:20 [Mass/vol on in on in IN PM ume] in source source INTERPRET Vaginal data data ATION:Sym fluid ptomatic women: There is an increased risk of deliveryw ithin 14 days for positive results obtained between 24weeks and 34 weeks,6 days of gestation .Asymptom atic women: There is an increased risk of deliverya t less than 35 weeks for positive results obtained ofmymzh55 weeks and 30 weeks,6 days of gestation . Urinalysis dipstick W Reflex Microscopic panel in Urine Observa Value Referen Units Interpr Notes Date tion ce etation Range Collected by nurse? Y Hold specimen in OE? N Appeara CLOUDY CLEAR No No No Apr 16 nce of informa informa informa 2017 Urine tion in tion in tion in 4:00 PM source source source data data data Bacteri 3+ O No No No Apr 16 a informa informa informa 2016 [Presen tion in tion in tion in 4:00 PM ce] in source source source Urine data data data sedimen t by Light microsc opy Bilirub NEGATIV NEG No No No Apr 16 in E informa informa informa 2016 [Presen tion in tion in tion in 4:00 PM ce] in source source source Urine data data data by Test strip Erythro NEGATIV NEG No No No Apr 16 cytes E informa informa informa 2016 [Presen tion in tion in tion in 4:00 PM ce] in source source source Urine data data data Color YELLOW YELLOW No No No Apr 16 of informa informa informa 2016 Urine tion in tion in tion in 4:00 PM source source source data data data Glucose NEG No No No Apr 16 [Mass/vol informati informati informati 2016 4:00 ume] in on in on in on in PM Urine by source source source Test data data data strip Ketones NEGATIV NEG mg/dL No No Apr 16 E informa informa 2016 [Presen tion in tion in 4:00 PM ce] in source source Urine data data by Automat ed test strip Mucus 3+ NEG No Abnorma No Apr 16 [Presen informa l informa 2016 ce] in tion in tion in 4:00 PM Urine source source sedimen data data t by Light microsc opy Nitrite NEGATIV NEG No No No Apr 16 E informa informa informa 2016 [Presen tion in tion in tion in 4:00 PM ce] in source source source Urine data data data by Test strip pH of 5.0 - 8.5 No Normal No Mar 24 Urine informati informati 2017 4:00 on in on in PM source source data data Protein NEG mg/dL No No Mar 24 [Mass/vol informati informati 2016 4:00 ume] in on in on in PM Urine by source source Automated data data test strip Erythro OCC 0 rbc/hpf No No Apr 16 cytes informa informa 2016 [Presen tion in tion in 4:00 PM ce] in source source Urine data data sedimen t by Light microsc opy Specific 1.005 - No Normal No Apr 16 gravity 1.030 informati informati 2017 4:00 of Urine on in on in PM source source data data Epithel 20-50 0 - 5 #/hpf No No Apr 16 ial informa informa 2017 cells.s tion in tion in 4:00 PM quamous source source data data [Presen ce] in Urine sedimen t by Microsc opy high power field Urobili 0.2 NEG E.U./dL No No Apr 16 nogen informa informa 2016 [Presen tion in tion in 4:00 PM ce] in source source Urine data data by Test strip Leukocy [10 O wbc/hpf No No Apr 16 angely wbc/hpf informa informa 2016 [#/volu ; 20 tion in tion in 4:00 PM me] in wbc/hpf source source Urine ] data data Urinalysis dipstick W Reflex Microscopic panel in Urine Observa Value Referen Units Interpr Notes Date tion ce etation Range Collected by nurse? Y Hold specimen in OE? N Appeara CLOUDY CLEAR No No No Apr 16 nce of informa informa informa 2017 Urine tion in tion in tion in 4:00 PM source source source data data data Bilirub NEGATIV NEG No No No Apr 16 in E informa informa informa 2016 [Presen tion in tion in tion in 4:00 PM ce] in source source source Urine data data data by Test strip Erythro NEGATIV NEG No No No Apr 16 cytes E informa informa informa 2016 [Presen tion in tion in tion in 4:00 PM ce] in source source source Urine data data data Color YELLOW YELLOW No No No Apr 16 of informa informa informa 2017 Urine tion in tion in tion in 4:00 PM source source source data data data Glucose NEG No No No Apr 16 [Mass/vol informati informati informati 2017 4:00 ume] in on in on in on in PM Urine by source source source Test data data data strip Ketones NEGATIV NEG mg/dL No No Apr 16 E informa informa 2016 [Presen tion in tion in 4:00 PM ce] in source source Urine data data by Automat ed test strip Mucus 3+ NEG No Abnorma No Mar 24 [Presen informa l informa 2016 ce] in tion in tion in 4:00 PM Urine source source sedimen data data t by Light microsc opy Nitrite NEGATIV NEG No No No Apr 16 E informa informa informa 2016 [Presen tion in tion in tion in 4:00 PM ce] in source source source Urine data data data by Test strip pH of 5.0 - 8.5 No Normal No Apr 16 Urine informati informati 2017 4:00 on in on in PM source source data data Protein NEG mg/dL No No Apr 16 [Mass/vol informati informati 2017 4:00 ume] in on in on in PM Urine by source source Automated data data test strip Specific 1.005 - No Normal No Apr 16 gravity 1.030 informati informati 2016 4:00 of Urine on in on in PM source source data data Urobili 0.2 NEG E.U./dL No No Apr 16 nogen informa informa 2016 [Presen tion in tion in 4:00 PM ce] in source source Urine data data by Test strip AFP Tetra Observa Value Referen Units Interpr Notes Date tion ce etation Range Results REPORT No No No No Feb 04 informa informa informa informa 2016 tion in tion in tion in tion in 3:28 PM source source source source data data data data Alpha-1-F No No No No Feb 04 etoprotei informati informati informati informati 2016 3:28 n on in on in on in on in PM [Mass/vol source source source source ume] in data data data data Serum or Plasma Alpha-1-F No No No No Feb 04 etoprotei informati informati informati informati 2016 3:28 n on in on in on in on in PM [Multiple source source source source of the data data data data median] adjusted in Serum or Plasma Choriogon No No No No Feb 04 adotropin informati informati informati informati 2017 3:28 on in on in on in on in PM [Units/vo source source source source lume] in data data data data Serum or Plasma Choriogon No No No No Feb 04 adotropin informati informati informati informati 2016 3:28 on in on in on in on in PM [Multiple source source source source of the data data data data median] adjusted in Serum or Plasma Estriol.u No No No No Feb 04 nconjugat informati informati informati informati 2016 3:28 ed on in on in on in on in PM [Mass/vol source source source source ume] in data data data data Serum or Plasma Estriol.u No No No No Feb 04 nconjugat informati informati informati informati 2016 3:28 ed on in on in on in on in PM [Multiple source source source source of the data data data data median] adjusted in Serum or Plasma Inhibin A No No No No Feb 04 informati informati informati informati 2016 3:28 [Mass/vol on in on in on in on in PM ume] in source source source source Serum data data data data Inhibin A No No No No Feb 04 informati informati informati informati 2016 3:28 [Multiple on in on in on in on in PM of the source source source source median] data data data data adjusted in Serum Neural No No No No Feb 04 tube informati informati informati informati 2016 3:28 defect on in on in on in on in PM risk in source source source source Fetus data data data data Trisomy No No No No Feb 04 21 risk informati informati informati informati 2016 3:28 in Fetus on in on in on in on in PM source source source source data data data data Second SCREEN No No No No Feb 04 trimest NEGATIV informa informa informa informa 2017 er quad E tion in tion in tion in tion in 3:28 PM source source source source materna data data data data l screen [interp retatio n] in Serum Narrati ve Trisomy No No No No Feb 04 21 risk informati informati informati informati 2017 3:28 based on on in on in on in on in PM maternal source source source source age in data data data data Fetus Trisomy No No No No Feb 04 18 risk informati informati informati informati 2017 3:28 in Fetus on in on in on in on in PM source source source source data data data data Trisomy No No No INTERPRET Feb 04 18 risk informati informati informati ATION: 2017 3:28 based on on in on in on in SCREEN PM maternal source source source NEGATIVET age in data data data HIS Fetus RESULT IS SCREEN NEGATIVE FOR OSB, DOWN SYNDROMEA ND TRISOMY 18. THE AFT MOM AND PATIENT SPECIFIC RISKSCALC ULATED ARE BASED ON THE GESTATION AL AGE AND THE CLINICALI NFORMAITO N PROVIDED. THIS TEST CAN IDENTIFY UP TO 80% OFOPEN NEURAL TUBE DEFECTS. CLOSED NEURAL TUBE DEFECTSAN D SOME OPEN DEFECTS MAY NOT BE DETECTEDB Y THIS TEST. THECOMBIN ATION OF MATERNAL AGE, AFP, HCG,UE3 AND AMY IDENTIFIE S75-80% OF DOWN SYNDROME. THE COMBINATI ON OF MATERNALA GE,AFP,HC G,AND UE3 IDENTIFIE S 60% OF TRISOMY 18PREGNAN CIES. THE [place] COLLEGE OF OBSTETRIC IANS ANDGYNEGC OLOGISTS RECOMMEND S AMNIOCENT ESIS BE OFFERED TO WOMENAGE 35 AND OLDER. RECALCULA TIONS ARE NOT RECOMMEND ED WHENGESTA TIONAL DATING BY LMP AND ULTRASOUN D ARE WITHIN 10 DAYS.COMM ENTS: ODALIS Baumann, PHD,[facility] DIRECTOR, BIOCHEMIC AL AND MOLECULAR GENETICSR EFERENCES : AVAILABLE UPON REQUEST.M ULTIPLES OF MEDIAN CUTOFFS ABBREVIAT ION DEFINITIO NSFOR AFP ELEVATION S IDD-INSUL IN DEP DIABETESS [place] 2.5 BLACK 2.8 OSBR-OPEN SPINA BIFIDA RISKIDD 2.0 TWINS 4.5 DSR-DOWN SYNDROME RISKDSR CUTOFF 1:270 [id number] CUTOFF 1:100DOWN SYNDROME AND TRISOMY 18 SCREENING ARE CONSIDERE DINVESTIG ATIONALFO R FURTHER INQUIRIES CONTACT [facility] [phone] [email or web address] ERFORMING SITE:[facility] [id number], [place] [id number]: KASHIF Chirinos MD Gestation No No No No Feb 04 al age informati informati informati informati 2016 3:28 on in on in on in on in PM source source source source data data data data Gestati YULIANA No No No No Feb 04 onal informa informa informa informa 2017 age 8 tion in tion in tion in tion in 3:28 PM method source source source source data data data data Age at No No No No Feb 04 delivery informati informati informati informati 2016 3:28 on in on in on in on in PM source source source source data data data data Mother' CAUCASI No No No No Feb 04 s race AN informa informa informa informa 2016 tion in tion in tion in tion in 3:28 PM source source source source data data data data Body No No No No Feb 04 weight informati informati informati informati 2017 3:28 on in on in on in on in PM source source source source data data data data Insulin NO No No No No Feb 04 informa informa informa informa 2017 depende tion in tion in tion in tion in 3:28 PM nt source source source source diabete data data data data s mellitu s [Presen ce] Multipl NO No No No No Feb 04 e informa informa informa informa 2017 preganc tion in tion in tion in tion in 3:28 PM y source source source source data data data data HCG Qual Observa Value Referen Units Interpr Notes Date tion ce etation Range HCG Negativ No No No No Jul 04 QUAL e informa informa informa informa 2016 tion in tion in tion in tion in 7:43 PM source source source source data data data data Glyco Observa Value Referen Units Interpr Notes Date tion ce etation Range Hemoglo 5.4 <=7.0 % No Initial Mar 08 bin informa 2014 A1c/Hem tion in Diagnos 10:17 oglobin source tic AM .total data Criteri in a\.br\< Blood 5.7 % Normal\ .br\5.7 - 6.4 % At risk for diabete s mellitu s\.br\> = 6.5 % Consist ent with diabete s mellitu s\.br\\ .br\Amy betes monitor ing\.br \Target Value (ADA recomme nded): < 7 % CBC Observa Value Referen Units Interpr Notes Date tion ce etation Range LEUKOCY 10.0 4.0 - x10(3)/ No No Mar 07 ANGELY 11.0 mcL informa informa 2013 tion in tion in 10:35 source source PM data data Erythro 5.28 3.80 - x10(6)/ High No Mar 07 cytes 5.10 mcL informa 2013 [#/volu tion in 10:35 me] in source PM Blood data by Automat ed count Hemoglo 13.9 12.0 - gm/dL No No Mar 07 bin 15.6 informa informa 2013 [Mass/v tion in tion in 10:35 olume] source source PM in data data Blood Hematoc 43.3 35.7 - % No No Mar 07 rit 45.9 informa informa 2013 [Volume tion in tion in 10:35 source source PM Fractio data data n] of Blood by Automat ed count Erythro 82.0 82.5 - fL Low No Mar 07 cyte 99.8 informa 2013 mean tion in 10:35 corpusc source PM ular data volume [Entiti c volume] by Automat ed count Erythro 26.3 27.0 - pg Low No Mar 07 cyte 34.3 informa 2013 mean tion in 10:35 corpusc source PM ular data hemoglo bin [Entiti c mass] by Automat ed count Erythro 32.1 32.1 - gm/dL No No Mar 07 cyte 35.3 informa informa 2013 mean tion in tion in 10:35 corpusc source source PM ular data data hemoglo bin concent ration [Mass/v olume] by Automat ed count Erythro 14.2 11.5 - % No No Mar 07 cyte 15.0 informa informa 2013 distrib tion in tion in 10:35 ution source source PM width data data [Ratio] by Automat ed count Platele 341 144 - x10(3)/ No No Mar 07 ts 423 mcL informa informa 2013 [#/volu tion in tion in 10:35 me] in source source PM Blood data data by Automat ed count MPV 8.2 6.8 - fL No No Mar 07 10.8 informa informa 2014 tion in tion in 10:35 source source PM data data Auto Diff Observa Value Referen Units Interpr Notes Date tion ce etation Range Neutrop 60.3 No % No No Mar 07 hils informa informa informa 2013 [#/volu tion in tion in tion in 10:35 me] in source source source PM Blood data data data by Automat ed count Lymphoc 26.2 No % No No Feb 15 ytes informa informa informa 2013 [#/volu tion in tion in tion in 10:35 me] in source source source PM Blood data data data by Automat ed count Monocyt 7.1 No % No No Feb 15 es informa informa informa 2013 [#/volu tion in tion in tion in 10:35 me] in source source source PM Blood data data data by Automat ed count Eos 5.8 No % No No Feb 15 Percent informa informa informa 2013 tion in tion in tion in 10:35 source source source PM data data data Baso 0.6 No % No No Feb 15 Percent informa informa informa 2014 tion in tion in tion in 10:35 source source source PM data data data Neut# 6.0 1.8 - x10(3)/ No No Feb 15 7.7 mcL informa informa 2013 tion in tion in 10:35 source source PM data data Lymph# 2.6 0.6 - x10(3)/ No No Feb 15 4.8 mcL informa informa 2013 tion in tion in 10:35 source source PM data data [place]# 0.7 0.0 - x10(3)/ No No Feb 15 1.3 mcL informa informa 2013 tion in tion in 10:35 source source PM data data Eos# 0.6 0.0 - x10(3)/ High No Feb 15 0.5 mcL informa 2013 tion in 10:35 source PM data Baso# 0.1 0.0 - x10(3)/ No No Feb 15 0.2 mcL informa informa 2013 tion in tion in 10:35 source source PM data data TSH Observa Value Referen Units Interpr Notes Date tion ce etation Range Thyrotr 1.630 0.270 - mcIU/mL No No Feb 15 opin 4.200 informa informa 2013 [Units/ tion in tion in 10:34 volume] source source PM in data data Serum or Plasma XR HAND RIGHT PA LATERAL AND [place] Observa Value Referen Units Interpr Notes Date tion ce etation Range TEXT XR HAND No No No No Aug 11 DIAGNOS RIGHT informa informa informa informa 2012 IS PA tion in tion in tion in tion in 10:52 BATTERY LATERAL source source source source PM AND data data data data OBLIQUE 012HIST ORY: Injury. No definit e fractur e, disloca tion, or malalig nment seen.IM STEPHEN N: Negativ e study
--- OUTSIDE RECORDS SUMMARY | 2017-07-07 02:57 | External Medical Summary Rpt ---
[...] than 35 weeks for positive results obtained steaztr37 weeks and 30 weeks,6 days of gestation [...] ARE WITHIN 10 DAYS.COMM ENTS: ODALIS Baumann, PHD,[facility] DIRECTOR, BIOCHEMIC AL AND MOLECULAR GENETICSR EFERENCES : AVAILABLE UPON REQUEST.M ULTIPLES OF MEDIAN CUTOFFS ABBREVIAT ION DEFINITIO NSFOR AFP ELEVATION S IDD-INSUL IN DEP DIABETESS [place] 2.5 BLACK 2.8 OSBR-OPEN SPINA BIFIDA RISKIDD 2.0 TWINS 4.5 DSR-DOWN SYNDROME RISKDSR CUTOFF 1:270 [id number] MY 18T18 CUTOFF 1:100DOWN SYNDROME AND TRISOMY 18 SCREENING ARE CONSIDERE DINVESTIG ATIONALFO R FURTHER INQUIRIES CONTACT [facility] [phone] [email or web address] ERFORMING SITE:[facility] ORJoyce [id number], [place] [id number]: KAHSIF Chirinos MD Gestation No No No No [...] in 10:35 source source PM data data [place]# 0.7 0.0 - x10(3)/ No No Feb [...]
[2017-07-07 06:00] VITALS: BP 138/98
[2017-07-07 06:12] LABS: BUN 8 mg/dL (7-18)
[2017-07-07 06:13] LABS: GFR (ESTIMATED) 122 ML/MIN (59-); HEMOGLOBIN 10.6 g/dL (12.2-16.2); LYMPH # 2.8 K/mm3 (0.7-4.5); LYMPH % 25.1 % (10-50.0)
[2017-07-07 06:40] LABS: ABO BLOOD TYPE O; RH BLOOD TYPE POSITIVE
--- NOTE | 2017-07-07 08:19 | Operative Note ---
Procedure/Operative Record Procedure Date of procedure: 07/07/17 Pre-Op Dx: Term , previous section Post-Op Dx: Term , previous section Procedure performed: Repeat lower segment transverse section Surgeon: Dr. Isiah Adams [facility] Coordinator(s): Judy Ellis Anesthesia: Johann Chen EBL (ml): 600 Clinical note: She is a 26-year-old 2 para 1 who is 39 and 2 weeks gestational age. She has had a previous section and as result of that was offered repeat lower segment transverse section at term. Operative findings: She delivered a live-born male child at 7:52 AM on the morning of July 07, 2017. The baby had Apgars of 9 at 1 minute and 10 at 5 minutes. PH was 7.38. Ovaries and tubes appeared normal. Operative note: She was taken to the operating room where spinal anesthesia was found be adequate. She was prepped and draped in normal sterile fashion in the supine position with a leftward tilt. A Prather catheter was in the bladder. A Pfannenstiel skin incision was made with knife then carried through to the underlying layer of fascia with cautery. The fascia was opened in the midline with cautery and extended laterally using Alves scissors. Alexander clamps were applied to the superior aspect of the fascial incision which was tented up and the underlying rectus muscles dissected off using cautery. The Jerald clamps were then applied to the inferior aspect of the fascial incision which in a similar fashion was tented up and the underlying rectus muscles dissected off using cautery. The rectus muscles were then in the midline, the peritoneum identified, and entered sharply with Metzenbaum scissors. This incision was then extended superiorly and inferiorly with cautery. We had good visualization of the bladder inferiorly. The bladder peritoneum was then opened in the midline and extended laterally using Metzenbaum scissors. A bladder flap was created digitally. The lower blade of the Elan was inserted so as to push the bladder out of the way. Transverse incision was made through the uterine muscle to the amnion. This incision was then extended laterally using fingers traction. The amnion was entered sharply with knife. The 's head was then delivered atraumatically. This was followed by the anterior shoulder and the rest of the 's body atraumatically. The oropharynx and nasopharynx were bulb suctioned. The was then handed off to Dr. Ricardo who assigned Apgars of 9 at 1 minute and 10 at 5 minutes. We then obtained cord blood as well as cord pH. The pH was 7.38 Using gentle traction on the cord and countertraction on the fundus I was able to easily deliver the placenta intact. It had a normal three-vessel cord. The uterus was then cleared of clots and debris and exteriorized from the abdominal cavity. The uterine incision was then closed using running 0 Vicryl suture in a locked fashion. A second layer of the same suture was used to imbricate the first layer. The bladder peritoneum was then closed using running 2-0 Vicryl suture in a locked fashion. The gutters and cul-de-sac were then cleared of clots and debris and the uterus was returned the abdominal cavity. Once again hemostasis was assured. The peritoneum was grasped with Kelle clamps and closed using running 2-0 Vicryl suture. The rectus muscles were then reapproximated using running 0 Vicryl suture. The fascia was closed using running #1 Vicryl suture. The subcutaneous tissues were then irrigated with warm water followed by closure Chelly's fascia using running 2-0 Monocryl suture. The skin was closed with nishi. I then clean the incision with Hibiclens. Sterile dressings were applied. She tolerated the procedure well and was taken to the recovery room in excellent condition. All sponges minute and needle counts were correct. Estimate a blood loss was approximately 600 mL. Conplications: None Specimens: Products of conception at 0818
--- NOTE | 2017-07-07 08:25 | Anesthesia Record ---
Anesthesia Record Part II Discharge time: 0850 Destination: OB PACU nurse assessment review? Yes Patient is: Awake, Stable Anesthesia complications? No at 2933
--- NOTE | 2017-07-07 08:25 | Anesthesia Record ---
Anesthesia Record Part I Total IV fluids: 1600 EBL (ml): 600 Urine Output: 300 B/P: 108/67 % SaO2: 97 Pulse: 92 Resps: 12 Temp: 97.6 Patient is: Awake, Stable Stable to PACU at: 0820 at 0824
--- NOTE | 2017-07-07 11:21 | PHARMACY CLINIC NOTE ---
Patient Demographics Patient Demographics Admission date: 07/07/17 Date: 07/07/17 Time: 1120 Allergies Coded Allergies: amoxicillin (From AUGMENTIN) (03/01/16) clavulanic acid (From AUGMENTIN) (03/01/16) HEIGHT- FT: 5 IN: 1.00 K.287 VTE General Information Labs: Laboratory Tests 07/07 0545 Hematology Hgb (12.2 - 16.2 g/dL) 10.6 L Hct (37.0 - 47.0 %) 32.5 L Plt Count (142 - 424 K/mm3) 271 Disclaimer The following section includes nursing documentation that has been pulled in for pharmacy review. VTE prophylaxis NQF [id number] VTE prophylaxis ordered? Yes Type of prophylaxis/treatment: ICD (POST OP) at 1120
[2017-07-07 14:32] LABS: URINE BILIRUBIN - DIPSTICK NEGATIVE (NEG); URINE BLOOD TRACE-INTACT (NEG)
[2017-07-07 15:08] LABS: URINE SQUAMOUS CELLS OCC #/hpf (0-5)
[2017-07-07 20:00] VITALS: BP 127/86
[2017-07-08 07:19] LABS: HEMOGLOBIN 10.1 g/dL (12.2-16.2)
[2017-07-08 07:56] VITALS: BP 119/73
--- NOTE | 2017-07-08 08:33 | ACUTE CARE PROGRESS NOTE (QUA) ---
Progress Notes Subjective Date 07/08/17 Time 0831 Note She is doing very well today. She is eating and drinking and ambulating. She is breast-feeding. Her pain is much better controlled. Lochia is normal. Patient/family reports: feeling better, no complaints Objective Findings Last VS-Temp:98.0 B/P:127/86 Pulse:95 Resp:18 SaO2:98 ROOM AIR Last weight lbs:177 oz:0 K.287 Method:Stated Laboratory Tests 07/08/17 0653: Hgb 10.1 L, Hct 30.5 L Exam General appearance: normal appearance, alert, awake, no acute distress Reviewed: vital signs, lab results Assessment/Plan Problem List 1. Delivery by section using transverse incision of lower segment of uterus Patient condition Improving, Stable Plan: continue current care This inpt stay is expected to cross 2 MNs from start of care Yes Comments: She is doing very well and we'll plan to send her home in 48 hours. at 0860
[2017-07-08 20:10] VITALS: BP 136/97
[2017-07-09 07:40] VITALS: BP 131/97
--- NOTE | 2017-07-09 07:52 | Discharge Summary ---
Discharge Summary Admission date: 07/07/17 Discharge date: 07/09/17 Discharge diagnoses: Term , previous section, repeat lower segment transverse section Clinical note: She is a 26-year-old 2 now para 2 who was 39+ weeks gestational age. She 's had a previous section and as result of that was offered repeat lower segment transverse section at term. Course in hospital: On July 07, 2017 she underwent a repeat lower segment transverse section. She delivered a live-born male child at 7:52 AM on the morning of July 07, 2017. The baby weighed 8 lbs. 1 oz. and had Apgars of 9 at 1 minute and 10 at 5 minutes. She has done well and has remained afebrile her hospitalization. She is eating and drinking and ambulating. She is breast-feeding. Her lochia is normal. She has O positive blood, she is rubella immune and was group B streptococcus negative. She is breast-feeding. Her woodworking machine offbearer is Dr. Ricardo. Laboratory Tests 07/08/17 0653: Hgb 10.1 L, Hct 30.5 L 07/07/17 0803: Cord Blood pH 7.38 07/07/17 0731: Urine Color YELLOW, Urine Appearance CLEAR, Urine pH 6.5, Ur Specific [place] 1.010, Urine Protein NEGATIVE, Urine Ketones NEGATIVE, Urine Blood TRACE-INTACT, Urine Nitrate NEGATIVE, Urine Bilirubin NEGATIVE, Urine Urobilinogen 0.2, Ur Leukocyte Esterase NEGATIVE, Urine RBC OCC, Urine WBC NONE, Ur Squamous Epith Cells OCC, Urine Bacteria TRACE, Urine Glucose NEGATIVE 07/07/17 0545: MCH 26.2 L 07/07/17 0545: Sodium 137, Potassium 3.5, Chloride 104, Carbon Dioxide 24, BUN 8, Creatinine 0.6, Estimated GFR (MDRD) 122, Glucose 89, Calcium 8.6, WBC 11.0 H, RBC 4.04 L , Hgb 10.6 L, Hct 32.5 L, MCV 80.3 L, RDW 13.7, Plt Count 271, MPV 8.1, Gran % 63.5, Gran # 7.0, Lymphocytes % 25.1, Monocytes % 5.1, Eosinophils % 5.8, Basophils % 0.4, Lymphocytes # 2.8, Monocytes # 0.6, Eosinophils # 0.6 H, Basophils # 0.1, PUBS MCHC 32.7, Antibody Screen NEGATIVE, Miscellaneous Test POSITIVE Laboratory Tests Plans for ongoing care: She is discharged home to follow-up with me in approximately 2 weeks' time. Discharge medications She will continue with her vitamins and iron. She was given a prescription for hydromorphone 2 mg, 20 tablets. She was given a prescription for Motrin 400 mg, 40 tablets. DC/follow-up instructions She was given the usual instructions with respect to limiting her activity, driving and sexual activity. She was given instructions with respect to wound care. Condition at discharge Stable and improved at 0750
[2017-07-09] MEDS ORDERED: HYDROMORPHONE2 MG PO (07:54)
[2017-07-09] MEDS ORDERED: MOTRIN 400MG.400 MG PO (07:54)
== END 2017-07-09 15:45 | disposition home or self-care (01) | DRG 766 ==
LOC: OB 02:51 → EDSTATUS 07:30 → OB 07:30 → SDC 07:30 → OB 08:42
PROVIDERS: Nurse Practitioner Obstetrics & Gynecology
PROC: 10D00Z1 Extraction of Products of Conception, Low, Open Approach (ICD-10-PCS; principal; 2017-07-07 07:30)
DX: O34.211 Maternal care for low transverse scar from previous cesarean delivery (principal); N85.8 Other specified noninflammatory disorders of uterus; Z3A.38 38 weeks gestation of pregnancy; Z37.0 Single live birth
CPT/HCPCS: J1956